=== PATIENT | male | born 1955 | race Caucasian/White ===

== ENCOUNTER → 2022-01-09 11:42 | Outpatient (BNVA) | payer MEDICARE, MEDICAID, SELFPAY | PROVIDERS: PCP Internal Medicine Geriatric Medicine; Visit Provider Physician Assistant | DX: R19.5 Other fecal abnormalities (principal); K52.9 Noninfective gastroenteritis and colitis, unspecified; R63.4 Abnormal weight loss; B20 Human immunodeficiency virus [HIV] disease; Z12.11 Encounter for screening for malignant neoplasm of colon | CPT/HCPCS: 99202 ==

== ENCOUNTER 2022-02-24 11:55 | Outpatient (REF) | payer MEDICARE, MEDICAID, SELFPAY ==
[2022-02-24 12:06] LABS: MANUAL DIFF FLAG NO
[2022-02-24 12:56] LABS: Basophils Percent Auto 0.6 % (0-2); Eosinophils Absolute Auto 0.1 X10*3/uL (0.0-0.4); Hematocrit 44.9 % (42.0-52.0); Hemoglobin 15.3 g/dl (14.0-18.0); Imm Gran Abs Auto 0.01 X10*3/uL (0.00-0.03); Imm Gran Pct Auto 0.2 % (0.0-0.4); Lymphocytes Percent Auto 31.7 % (20-40); Mean Corpuscular HGB Conc 34.1 g/dl (31.0-36.0); Mean Corpuscular Hemoglobin 29.5 pg (27.0-33.0); Mean Corpuscular Volume 86.7 fL (80.0-98.0); Mean Platelet Volume 10.4 fL (9.4-12.4); Monocytes Absolute Auto 0.5 X10*3/uL (0.1-1.2); Monocytes Percent Auto 8.6 % (2-11); Neutrophils Absolute Auto 3.6 x10*3/uL (2.0-8.3); Neutrophils Percent Auto 57.9 % (45-73); Platelet Count 218 X10*3/uL (160-400); Red Blood Count 5.18 X10*6/uL (4.60-5.80); Red Cell Distribution Width 13.4 % (11.0-16.0); White Blood Count 6.2 X10*3/uL (4.8-10.8)
[2022-02-24 13:24] LABS: Alanine Aminotransferase 14 U/L (0-40); Albumin Level 4.4 g/dL (3.5-5.0); Alkaline Phosphatase 93 U/L (39-117); Anion Gap 17 (12-20); Aspartate Amino Transferase 24 U/L (5-37); Bilirubin Total 0.5 mg/dL (0.0-1.0); Blood Urea Nitrogen 25 mg/dL (9-16); Calcium 9.1 mg/dL (8.4-10.2); Carbon Dioxide 21 mmol/L (22-29); Chloride 103 mmol/L (96-108); Estimated Glomerular Filt Rate 47; Glucose Random 90 mg/dL (60-115); Potassium 4.8 mmol/L (3.3-5.1); Sodium 136 mmol/L (135-145); Total Protein 7.4 g/dL (6.5-8.0)
[2022-02-24 13:38] LABS: Thyroid Stimulating Hormone 0.93 uIU/mL (0.32-4.0)
== END 2022-02-24 11:56 | disposition home or self-care (01) ==
LOC: HO.LAB 11:55
PROVIDERS: PCP Internal Medicine Geriatric Medicine; Visit Provider Physician Assistant
DX: R63.4 Abnormal weight loss (principal); R19.5 Other fecal abnormalities; K52.9 Noninfective gastroenteritis and colitis, unspecified
CPT/HCPCS: 36415; 80053; 84443; 85025

== ENCOUNTER 2022-04-25 11:08 | Day surgery (SDC) | payer MEDICARE, MEDICAID, SELFPAY ==
[2022-04-20 11:02] VITALS: BMI 19.5
--- NOTE | 2022-04-24 13:19 | P.CONAN_ITS ---
Documented by User: Kerline England NP 04/24/22 13:19 HPI - Anesthesia Eval Consult details Narrative: 66yo M for Upper Endoscopy and Colonoscopy PMFSH Active Problems Active Problems: All Active Problems (Updated 04/20/22 @ 11:05 by Katelyn Barnard RN) Positive colorectal cancer screening using Cologuard test (Acute) Weight loss (Acute) Past Medical History Medical History HIV (human immunodeficiency virus infection) HTN (hypertension) Low back pain Family History Family History Father HTN (hypertension) Heart disease Mother Alzheimer disease Surgical History Surgical History Hx of colonoscopy Hx of hernia repair Social History Social History (Updated 04/20/22 @ 11:02 by Katelyn Barnard RN) Household Members: Family Housing: House Are you a primary manager urgent care to a significant other at home: Yes (father 96 yr old) Do you presently have visiting nurse or other home services: No Alcohol intake: current Alcohol intake frequency: holidays/special occasions only Alcohol type: wine Patient Tobacco Use Status: Never used Tobacco Current occupational status: retired Meds Allergies Allergy/AdvReac Type Severity Reaction Status Date / Time No Known Allergies Allergy Mild NO KNOWN Verified 04/25/22 11:43 ALLERGIES Home Medications Medication Instructions Recorded Confirmed Last Taken Type amlodipine 10 mg tablet 10 mg PO BEDTIME 01/09/22 04/20/22 Unknown History bictegravir 50 mg-emtricitabine 1 tab PO BEDTIME 01/09/22 04/20/22 Unknown History 200 mg-tenofovir alafenam 25 mg tablet (Biktarvy) lisinopril 20 mg tablet 20 mg PO BEDTIME 01/09/22 04/20/22 Unknown History Exam Exam Date and Time: April 24, 2022 1319 Height,Weight and Vital Signs: Height 5 ft 8 in Weight 58.513 kg Pertinent Lab Results Pertinent Lab Results: Laboratory Tests 02/24/22 02/24/22 12:04 12:04 WBC 6.2 Hgb 15.3 Hct 44.9 Plt Count 218 Sodium 136 Potassium 4.8 Chloride 103 Carbon Dioxide 21 L BUN 25 H Creatinine 1.49 H Assessment and Plan Assessment Anesthesia Assessment: Chart Reviewed Documented by User: Kevin Davis MD 04/25/22 19:51 [facility] Past Medical History Medical History HIV (human immunodeficiency virus infection) HTN (hypertension) Low back pain Family History Family History Father HTN (hypertension) Heart disease Mother Alzheimer disease Family history of problems with anesthesia: No Surgical History Surgical History Hx of colonoscopy Hx of hernia repair History of Problems with Anesthesia: No Social History Social History (Updated 04/20/22 @ 11:02 by Katelyn Barnard RN) Household Members: Family Housing: House Are you a primary manager urgent care to a significant other at home: Yes (father 96 yr old) Do you presently have visiting nurse or other home services: No Alcohol intake: current Alcohol intake frequency: holidays/special occasions only Alcohol type: wine Patient Tobacco Use Status: Never used Tobacco Current occupational status: retired Meds Allergies Allergy/AdvReac Type Severity Reaction Status Date / Time No Known Allergies Allergy Mild NO KNOWN Verified 04/25/22 11:43 ALLERGIES Home Medications Medication Instructions Recorded Confirmed Last Taken Type amlodipine 10 mg tablet 10 mg PO BEDTIME 01/09/22 04/20/22 Unknown History bictegravir 50 mg-emtricitabine 1 tab PO BEDTIME 01/09/22 04/20/22 Unknown History 200 mg-tenofovir alafenam 25 mg tablet (Biktarvy) lisinopril 20 mg tablet 20 mg PO BEDTIME 01/09/22 04/20/22 Unknown History Exam Airway Mallampati Class: III TM Dist: >3cm Neck ROM: Full Loose/Missing/Broken Teeth: Yes (Poor , chiiped multiple) Heart: S1,S2 Lungs: b/l breath sounds Assessment and Plan Assessment Anesthesia Assessment: Anesthesia Plan Discussed Final Anesthetic Review Family History of Problems with Anesthesia: No History of Problems with Anesthesia: No NPO: Yes ASA Class: III Final Preanesthetic Review: Meds/Allgs Chart Reviewed, Consent Obtained/Reviewed and Anes Risks/Benef Reviewed Patient Risk: Intermediate Procedure Risk: Intermediate Anesthetic Plan Anesthetic Plan: MAC: Disposition: Standard PACU
--- NOTE | 2022-04-25 11:31 | MHC.SHP ---
Pre-Procedural Eval Section A Date of Service: 04/25/22 Section B Chief Complaint: Other fecal abnormalities,Abnormal weight loss Relevant Family History (Specify if Yes): No Relevant Social History: None Present Medications: see Short Stay Collaborative assessment Medical History: Significant History (HIV (human immunodeficiency virus infection) HTN (hypertension) Low back pain) History of Previous Operations: Relevant previous surgery/procedure and date(s) (hernia repair, colonoscopy ) Allergies: Allergies Allergy/AdvReac Type Severity Reaction Status Date / Time No Known Allergies Allergy Mild NO KNOWN Verified 04/20/22 11:01 ALLERGIES Review of Systems Sugical H&P ROS: Negative: Constitution, Cardiovascular, Respiratory, Neurological, Psychiatric, Hem-Onc, Allergic/Immunologic, Gastrointestinal, Genitourinary, Musculoskeletal, Integumentary, Endocrine and Eyes/Ears/Nose/Throat Exam Surgical H&P Exam: Normal: HEENT, Normal: Heart, Normal: Lungs, Normal: Extremities, Normal: Abdomen, Normal: Skin and Normal: Neurological Exam Comment: cachexic appearing Plan Diagnosis/Plan: Unchanged I have reviewed the history and physical and performed a pertinent physical examination on my patient. No changes have occurred unless specified.
[2022-04-25 11:43] VITALS: BP 151/86; PULSE 75; RESP 15; TEMP 36.4; O2SAT 100
[2022-04-25] MEDS: Lactated Ringers 1,000 ML 100 ML IVCONT (11:58)
--- NOTE | 2022-04-25 12:40 | W.PM.OPN ---
Operative Note Operative Note Date of Service: 04/25/22 Narrative: Operative Information Procedure Description: EGD, Colonoscopy Indication: weight loss, pos cologuard Anesthesia: MAC FLEXIBLE TRANSORAL UPPER GASTROINTESTINAL ENDOSCOPY AND COLONOSCOPY PROCEDURE NOTE UPPER ENDOSCOPY Consent: Indications for the procedure and potential complications of bleeding, perforation, reaction to medications and missed diagnosis were discussed with the patient and informed consent was obtained. Instrument: Olympus GIF H 190 J mid size upper endoscope Monitoring: Vital signs and clinical assessment, continuous EKG monitoring, Pulse oximetry, Carbon Dioxide monitoring and blood pressure monitoring were done throughout the procedure. Procedure: The patient was placed in the left lateral decubitis position and pre-procedure medications were administered and a bite block was placed. The endoscope was inserted into the mouth and advanced under direct vision to the third part of duodenum. A careful inspection was made as the upper endoscope was withdrawn including a retroflexed examination of the proximal stomach; Findings and interventions are described below. Findings: Larynx:normal Esophagus: GE junction at 40 cm, diaphragm hiatus at 40 cm, bogginess and erythema at GEJ consistent with esophagitis, bx taken as well as from distal esophagus in separate jars Stomach: Patchy erythema. Biopsies were obtained. Grade 2 flap valve on retroflexed examination of the cardia. Duodenum: Mild duodenitis, bx taken Intervention: Biopsies as noted above COLONOSCOPY Instrument: Olympus variable stiffness pediatric scope 190L then switched to EGd scope due to tight sigmoid Colonoscopy Monitoring: Vital signs and clinical assessment, continuous EKG monitoring, Pulse oximetry, Carbon Dioxide monitoring and blood pressure monitoring were done throughout the procedure. Colon withdrawal time was 13 minutes. Procedure: The patient was placed in the left lateral decubitis position and pre-procedure medications were administered. After a digital rectal examination of the ano-rectum, the video colonoscope was inserted into the rectum and advanced through the colon to the cecum/TI. The colonoscope was slowly withdrawn in a retrograde panoramic fashion and the colon mucosa was carefully examined including a retroflexed view of the rectum. Findings and interventions are described below. Procedure Difficulty:hard Findings: Terminal Ileum-normal, bx taken Random colon bx taken Cecum: 10 mm sessile polyp removed with cold snare Ascending Colon: normal Transverse Colon -normal Descending Colon:normal Sigmoid Colon: severe diverticulosis, with tight lumen and hypertrophic mucosa Rectum: Retroflexion with small internal hemorrhoids, grade I Anorectum - normal Colon preparation: [place] Bowel Preparation Scale Right colon; 2 Transverse colon: 2 Left colon; 2 (0 = Unprepared colon segment with mucosa not seen due to solid stool that cannot be cleared. 1 = Portion of mucosa of the colon segment seen, but other areas of the colon segment not well seen due to staining, residual stool and/or opaque liquid. 2 = Minor amount of residual staining, small fragments of stool and/or opaque liquid, but mucosa of colon segment seen well. 3 = Entire mucosa of colon segment seen well with no residual staining, small fragments of stool or opaque liquid) Impression and Post Procedure Diagnosis: Endoscopy Findings: gastritis esophagitis Colonoscopy Findings: polyp internal hemorrhoids diverticular disease Plan: Await Pathology results Repeat Colonoscopy in 5 years if adenomatous polyp, 10 yrs if benign or earlier if clinically indicated High fiber diet leaflet avoid straining at stool, epsom salts and sitz bath, anusol supps or cream If ongoing weight loss and neg bx then will need to widen the work up Above findings were reviewed with the patient and relevant handouts were provided if indicated.
[2022-04-25 13:55] VITALS: BP 132/80; PULSE 76; RESP 16; TEMP 36.4; O2SAT 98
[2022-04-25 14:10] VITALS: BP 150/94; PULSE 73; RESP 16; O2SAT 100
[2022-04-25 14:25] VITALS: BP 164/96; PULSE 58; RESP 16; O2SAT 100
[2022-04-25 14:40] VITALS: BP 163/88; PULSE 60; RESP 18; TEMP 36.6; O2SAT 100
== END 2022-04-25 15:06 | disposition home or self-care (01) ==
PROVIDERS: PCP Internal Medicine Geriatric Medicine; Visit Provider Internal Medicine Gastroenterology
PROC: (CPT 45385; principal; 2022-04-25 12:40)
DX: R19.5 Other fecal abnormalities (principal); R63.4 Abnormal weight loss; Z68.1 Body mass index [BMI] 19.9 or less, adult; D12.0 Benign neoplasm of cecum; K57.30 Diverticulosis of large intestine without perforation or abscess without bleeding; K64.0 First degree hemorrhoids; K20.90 Esophagitis, unspecified without bleeding; K29.80 Duodenitis without bleeding; K29.70 Gastritis, unspecified, without bleeding; I10 Essential (primary) hypertension; B20 Human immunodeficiency virus [HIV] disease; Z79.899 Other long term (current) drug therapy
CPT/HCPCS: 45385; 45380; 43239; 88305; 88312; 88313; 88342

== ENCOUNTER 2023-01-01 16:22 | Outpatient (REF) | payer MEDICARE, MEDICAID, SELFPAY ==
[2023-01-02 01:55] LABS: Anion Gap 9 (12-20); Blood Urea Nitrogen 22 mg/dL (9-16); Calcium 8.8 mg/dL (8.4-10.2); Carbon Dioxide 29 mmol/L (22-29); Chloride 105 mmol/L (96-108); Estimated Glomerular Filt Rate 44; Glucose Random 75 mg/dL (60-115); Potassium 4.1 mmol/L (3.3-5.1); Sodium 139 mmol/L (135-145); Uric Acid 6.7 mg/dL (3.4-7.0)
== END 2023-01-01 16:23 | disposition home or self-care (01) ==
LOC: HO.HHCL 16:22
PROVIDERS: Visit Provider Internal Medicine Geriatric Medicine
DX: M25.562 Pain in left knee (principal)
CPT/HCPCS: 36415; 80048; 84550

== ENCOUNTER 2023-01-02 10:05 | Outpatient (REF) | payer MEDICARE, SELFPAY ==
--- NOTE | ~2023-01-02 | XR_ITS ---
EXAMINATION: XR KNEE, LEFT CLINICAL INFORMATION: Left knee pain. COMPARISON: None available. TECHNIQUE: Four views of the left knee. FINDINGS: No fracture or joint effusion appreciated. Alignment is anatomic. Question mild joint space narrowing involving the patellofemoral compartment laterally. Joint spaces otherwise appear maintained. Calcification of the popliteal artery. XR/XR knee LT 4V IMPRESSION: No acute finding.
== END 2023-01-02 10:06 | disposition home or self-care (01) ==
LOC: HO.XRAY 10:05
PROVIDERS: PCP Internal Medicine Geriatric Medicine; Visit Provider Internal Medicine Geriatric Medicine
DX: M25.562 Pain in left knee (principal)
CPT/HCPCS: 73564

== ENCOUNTER 2023-01-17 13:58 | Outpatient (REF) | payer MEDICARE, SELFPAY ==
[2023-01-17 17:14] LABS: MANUAL DIFF FLAG NO
[2023-01-17 17:19] LABS: Basophils Percent Auto 0.4 % (0-2); Eosinophils Absolute Auto 0.1 X10*3/uL (0.0-0.4); Eosinophils Percent Auto 0.7 % (0-4); Hematocrit 46.9 % (42.0-52.0); Hemoglobin 15.5 g/dl (14.0-18.0); Imm Gran Abs Auto 0.07 X10*3/uL (0.00-0.03); Imm Gran Pct Auto 0.7 % (0.0-0.4); Lymphocytes Absolute Auto 1.6 X10*3/uL (1.2-4.9); Lymphocytes Percent Auto 14.9 % (20-40); Mean Corpuscular Hemoglobin 30.1 pg (27.0-33.0); Mean Corpuscular Volume 91.1 fL (80.0-98.0); Mean Platelet Volume 10.6 fL (9.4-12.4); Monocytes Absolute Auto 1.3 X10*3/uL (0.1-1.2); Neutrophils Absolute Auto 7.4 x10*3/uL (2.0-8.3); Neutrophils Percent Auto 71.3 % (45-73); Platelet Count 192 X10*3/uL (160-400); Red Blood Count 5.15 X10*6/uL (4.60-5.80); Red Cell Distribution Width 13.8 % (11.0-16.0); White Blood Count 10.4 X10*3/uL (4.8-10.8)
[2023-01-17 17:56] LABS: Alanine Aminotransferase 12 U/L (0-40); Albumin Level 3.8 g/dL (3.5-5.0); Alkaline Phosphatase 106 U/L (39-117); Anion Gap 17 (12-20); Aspartate Amino Transferase 15 U/L (5-37); Bilirubin Total 0.5 mg/dL (0.0-1.0); Blood Urea Nitrogen 35 mg/dL (9-16); Calcium 9.3 mg/dL (8.4-10.2); Carbon Dioxide 26 mmol/L (22-29); Chloride 98 mmol/L (96-108); Estimated Glomerular Filt Rate 36; Glucose Random 90 mg/dL (60-115); Potassium 4.5 mmol/L (3.3-5.1); Sodium 136 mmol/L (135-145); Total Protein 6.9 g/dL (6.5-8.0)
[2023-01-19 12:52] LABS: Absolute CD3 Count 1139 cells/uL (840-3060); Absolute CD4 Count 165 cells/uL (490-1740); Absolute CD8 Count 962 cells/uL (180-1170); Absolute Lymphocytes 1497 cells/uL (850-3900); CD4 CD8 Ratio 0.17 (0.86-5.00); Percent CD3 Cells 76 % (57-85); Percent CD4 Cells 11 % (30-61); Percent CD8 Cells 64 % (12-42)
[2023-01-21 09:29] LABS: HIV RNA PCR Qn Copies NOT DETECTED copies/mL (NOT DETECTED); HIV RNA PCR Qn Log Copies NOT DETECTED (NOT DETECTED)
== END 2023-01-17 13:59 | disposition home or self-care (01) ==
LOC: HO.HHCL 13:58
PROVIDERS: Visit Provider Internal Medicine
DX: B20 Human immunodeficiency virus [HIV] disease (principal)
CPT/HCPCS: 36415; 80053; 85025; 86359; 86360; 87536

== ENCOUNTER 2023-02-07 08:01 | Outpatient (AMB) | payer MEDICARE, SELFPAY ==
--- NOTE | 2023-02-07 08:03 | MHC.OFFVIS ---
Intake Vital Signs 02/07/23 08:08 Height 5 ft 7 in Weight 122 lb BMI 19.1 Intake Visit Reasons: COMMERCIAL LITIGATION ASSOCIATE, Left Knee Pain Intake Note: Sammy is a 67 year old male who presents today for a new patient visit with complaints of left knee pain. Denies injury. He has been taking tylenol and using topical diclofenac. His pain is felt on the lateral aspect of the knee , he also explains that he has been having pain in the right achilles. Pain in the left knee is increased with prolonged walking standing and stairs. He was seen with his pcp who suggested possible gout, blood work was done but he was not given results yet. He denies any locking or giving way. He does do quite a bit of cycling and walking for exercise. Allergies No Known Allergies Allergy (Mild, Verified 02/07/23 08:08) NO KNOWN ALLERGIES Medication List - Last Reconciled 02/07/23 by Venkat Padilla MD amlodipine 10 mg PO BEDTIME vrkhnxpzl-fwarjyac-svbkalz ala 50-200-25 mg (Biktarvy) 1 tab PO BEDTIME diclofenac sodium 1% (Arthritis Pain (diclofenac)) 2 grams topical QID lisinopril 20 mg PO BEDTIME PFSH Medical History (Updated 02/07/23 @ 08:29 by Venkat Padilla MD) Low back pain HIV (human immunodeficiency virus infection) HTN (hypertension) Surgical History Hx of hernia repair Hx of colonoscopy Family History Father HTN (hypertension) Heart disease Mother Alzheimer disease Social History (Updated 04/20/22 @ 11:02 by Katelyn Barnard RN) Household Members: Family Housing: House Are you a primary health care facilities inspector to a significant other at home: Yes (father 96 yr old) Do you presently have visiting nurse or other home services: No Alcohol intake: current Alcohol intake frequency: holidays/special occasions only Alcohol type: wine Patient Tobacco Use Status: Never used Tobacco Current occupational status: retired Physical Exam Vital Signs: BMI result Body Mass Index 19.1 Const Other: Well-nourished well-developed very friendly male awake alert and oriented x3 in no acute distress Extrem Other: Bilateral lower extremity examination shows good capillary refill, no skin lesions noted, normal sensation light touch Left knee examination shows a minimal effusion, mild crepitus with range of motion, range of motion from full extension to 120 degrees of flexion, no instability Results Reviewed Results Reviewed: X-rays of the patient's left knee show mild diffuse joint space narrowing, no acute bony abnormalities Assessment & Plan Assessment & Plan (1) Left knee pain: Code(s): M25.562 - Pain in left knee Plan: Mr. Gardner presents with left knee discomfort most likely due to early degenerative joint disease. I had a lengthy discussion with the patient regarding the treatment options. At this point his symptoms are improving with Tylenol and activity modifications. He will follow up with me on an as-needed basis should his symptoms worsen in any way. Feel free to call me at any time should questions regarding his orthopedic management arise. Thank you very much for asking me to see this very friendly gentleman. I spent 22 minutes in reviewing the patient's records and imaging studies, seeing the patient and documenting in the medical record. Coding Level of Care Code New Pt Level 2 (29730) Diagnoses Left knee pain M25.562
[2023-02-07 08:08] VITALS: BMI 19.1
== END 2023-02-07 08:34 | disposition home or self-care (01) ==
PROVIDERS: PCP Internal Medicine Geriatric Medicine; Visit Provider Orthopaedic Surgery
DX: M25.562 Pain in left knee (principal)
CPT/HCPCS: 99202

== ENCOUNTER → 2023-02-07 08:01 | Outpatient (BNVA) | payer MEDICARE, SELFPAY | PROVIDERS: PCP Internal Medicine Geriatric Medicine; Visit Provider Orthopaedic Surgery | DX: M25.562 Pain in left knee (principal) | CPT/HCPCS: 99202 ==

== ENCOUNTER 2023-03-19 13:56 | Outpatient (REF) | payer MEDICARE, SELFPAY ==
[2023-03-19 15:57] LABS: MANUAL DIFF FLAG NO
[2023-03-19 16:08] LABS: Basophils Percent Auto 0.6 % (0-2); Eosinophils Absolute Auto 0.1 X10*3/uL (0.0-0.4); Eosinophils Percent Auto 0.8 % (0-4); Hematocrit 44.6 % (42.0-52.0); Hemoglobin 14.7 g/dl (14.0-18.0); Imm Gran Abs Auto 0.02 X10*3/uL (0.00-0.03); Imm Gran Pct Auto 0.3 % (0.0-0.4); Lymphocytes Absolute Auto 1.6 X10*3/uL (1.2-4.9); Lymphocytes Percent Auto 22.8 % (20-40); Mean Platelet Volume 10.5 fL (9.4-12.4); Monocytes Absolute Auto 0.4 X10*3/uL (0.1-1.2); Monocytes Percent Auto 5.7 % (2-11); Neutrophils Percent Auto 69.8 % (45-73); Platelet Count 220 X10*3/uL (160-400); Red Cell Distribution Width 14.6 % (11.0-16.0); White Blood Count 7.2 X10*3/uL (4.8-10.8)
[2023-03-19 16:21] LABS: Alanine Aminotransferase 13 U/L (0-40); Albumin Level 4.1 g/dL (3.5-5.0); Alkaline Phosphatase 86 U/L (39-117); Anion Gap 12 (12-20); Aspartate Amino Transferase 20 U/L (5-37); Bilirubin Total 0.4 mg/dL (0.0-1.0); Blood Urea Nitrogen 19 mg/dL (9-16); Calcium 9.7 mg/dL (8.4-10.2); Carbon Dioxide 23 mmol/L (22-29); Chloride 108 mmol/L (96-108); Estimated Glomerular Filt Rate 56; Glucose Random 100 mg/dL (60-115); Potassium 4.3 mmol/L (3.3-5.1); Sodium 139 mmol/L (135-145); Total Protein 7.1 g/dL (6.5-8.0)
[2023-03-20 08:44] LABS: Absolute CD3 Count 1292 cells/uL (840-3060); Absolute CD4 Count 218 cells/uL (490-1740); Absolute CD8 Count 1061 cells/uL (180-1170); Absolute Lymphocytes 1605 cells/uL (850-3900); CD4 CD8 Ratio 0.21 (0.86-5.00); Percent CD3 Cells 80 % (57-85); Percent CD4 Cells 14 % (30-61); Percent CD8 Cells 66 % (12-42)
[2023-03-21 16:12] LABS: HIV RNA PCR Qn Copies 80 copies/mL (NOT DETECTED)
== END 2023-03-19 13:57 | disposition home or self-care (01) ==
LOC: HO.HHCL 13:56
PROVIDERS: Visit Provider Internal Medicine
DX: B20 Human immunodeficiency virus [HIV] disease (principal)
CPT/HCPCS: 36415; 80053; 85025; 86359; 86360; 87536

== ENCOUNTER 2023-07-23 10:48 | Outpatient (REF) | payer MEDICARE, SELFPAY ==
[2023-07-23 13:20] LABS: MANUAL DIFF FLAG NO
[2023-07-23 13:43] LABS: Basophils Percent Auto 0.6 % (0-2); Eosinophils Absolute Auto 0.1 X10*3/uL (0.0-0.4); Eosinophils Percent Auto 0.7 % (0-4); Hemoglobin 15.8 g/dl (14.0-18.0); Imm Gran Abs Auto 0.02 X10*3/uL (0.00-0.03); Imm Gran Pct Auto 0.3 % (0.0-0.4); Lymphocytes Absolute Auto 1.6 X10*3/uL (1.2-4.9); Lymphocytes Percent Auto 22.6 % (20-40); Mean Corpuscular HGB Conc 32.9 g/dl (31.0-36.0); Mean Corpuscular Volume 91.3 fL (80.0-98.0); Mean Platelet Volume 10.4 fL (9.4-12.4); Monocytes Absolute Auto 0.6 X10*3/uL (0.1-1.2); Monocytes Percent Auto 8.6 % (2-11); Neutrophils Absolute Auto 4.7 x10*3/uL (2.0-8.3); Neutrophils Percent Auto 67.2 % (45-73); Platelet Count 206 X10*3/uL (160-400); Red Blood Count 5.26 X10*6/uL (4.60-5.80); Red Cell Distribution Width 13.3 % (11.0-16.0)
[2023-07-23 13:58] LABS: Cholesterol 213 mg/dL (<200); HDL Cholesterol 31 mg/dL (>40); LDL Cholesterol Calculated 146 mg/dL (<100); Triglycerides 183 mg/dL (<150)
[2023-07-23 14:00] LABS: Alanine Aminotransferase 9 U/L (0-40); Albumin Level 4.1 g/dL (3.5-5.0); Alkaline Phosphatase 99 U/L (39-117); Anion Gap 9 (12-20); Aspartate Amino Transferase 15 U/L (5-37); Bilirubin Total 0.6 mg/dL (0.0-1.0); Blood Urea Nitrogen 29 mg/dL (9-16); Calcium 9.3 mg/dL (8.4-10.2); Carbon Dioxide 29 mmol/L (22-29); Chloride 106 mmol/L (96-108); Estimated Glomerular Filt Rate 45; Glucose Random 88 mg/dL (60-115); Potassium 4.8 mmol/L (3.3-5.1); Sodium 139 mmol/L (135-145); Total Protein 7.2 g/dL (6.5-8.0)
[2023-07-23 14:24] LABS: Prostate Specific Antigen 4.08 ng/mL (<0.05-4.0)
[2023-07-23 14:41] LABS: Reflex LDLD? No
[2023-07-24 08:08] LABS: ~HepC Num1 0.08 S/CO (0.00-0.79); ~Hepatitis C Antibody Nonreactive (Nonreactive)
[2023-07-24 08:15] LABS: Syphilis Screen Nonreactive (Nonreactive)
[2023-07-24 16:23] LABS: HIV RNA PCR Qn Copies 25 copies/mL (NOT DETECTED)
[2023-07-25 11:08] LABS: Absolute CD3 Count 1127 cells/uL (840-3060); Absolute CD4 Count 155 cells/uL (490-1740); Absolute CD8 Count 958 cells/uL (180-1170); Absolute Lymphocytes 1407 cells/uL (850-3900); CD4 CD8 Ratio 0.16 (0.86-5.00); Percent CD3 Cells 80 % (57-85); Percent CD4 Cells 11 % (30-61); Percent CD8 Cells 68 % (12-42)
[2023-07-26 00:28] LABS: TS Negative Control Passed; TS Panel A 0; TS Panel B 0; TS Positive Control Passed; TSpotTB Negative (Negative)
== END 2023-07-23 10:49 | disposition home or self-care (01) ==
LOC: HO.HHCL 10:48
PROVIDERS: Internal Medicine Geriatric Medicine; Visit Provider Internal Medicine
DX: B20 Human immunodeficiency virus [HIV] disease (principal); I10 Essential (primary) hypertension; N40.0 Benign prostatic hyperplasia without lower urinary tract symptoms; Z12.5 Encounter for screening for malignant neoplasm of prostate
CPT/HCPCS: 36415; 80053; 80061; 84153; 85025; 86359; 86360; 86481; 86780; 86803; 87536

== ENCOUNTER 2024-02-22 13:08 | Outpatient (REF) | payer MEDICARE, SELFPAY ==
[2024-02-22 16:10] LABS: MANUAL DIFF FLAG NO
[2024-02-22 16:19] LABS: Basophils Percent Auto 0.6 % (0-2); Eosinophils Percent Auto 0.3 % (0-4); Hematocrit 48.1 % (42.0-52.0); Hemoglobin 15.8 g/dl (14.0-18.0); Imm Gran Abs Auto 0.02 X10*3/uL (0.00-0.03); Imm Gran Pct Auto 0.3 % (0.0-0.4); Lymphocytes Absolute Auto 1.3 X10*3/uL (1.2-4.9); Lymphocytes Percent Auto 18.9 % (20-40); Mean Corpuscular HGB Conc 32.8 g/dl (31.0-36.0); Mean Corpuscular Hemoglobin 29.4 pg (27.0-33.0); Mean Corpuscular Volume 89.6 fL (80.0-98.0); Mean Platelet Volume 9.9 fL (9.4-12.4); Monocytes Absolute Auto 0.4 X10*3/uL (0.1-1.2); Monocytes Percent Auto 6.4 % (2-11); Neutrophils Absolute Auto 4.9 x10*3/uL (2.0-8.3); Neutrophils Percent Auto 73.5 % (45-73); Platelet Count 291 X10*3/uL (160-400); Red Blood Count 5.37 X10*6/uL (4.60-5.80); Red Cell Distribution Width 13.6 % (11.0-16.0); White Blood Count 6.7 X10*3/uL (4.8-10.8)
[2024-02-22 18:03] LABS: Alanine Aminotransferase 12 U/L (0-40); Albumin Level 4.1 g/dL (3.5-5.0); Alkaline Phosphatase 105 U/L (39-117); Anion Gap 14 (12-20); Aspartate Amino Transferase 21 U/L (5-37); Bilirubin Total 0.4 mg/dL (0.0-1.0); Blood Urea Nitrogen 23 mg/dL (9-16); Calcium 9.2 mg/dL (8.4-10.2); Carbon Dioxide 24 mmol/L (22-29); Chloride 105 mmol/L (96-108); Estimated Glomerular Filt Rate 45; Glucose Random 80 mg/dL (60-115); Potassium 4.5 mmol/L (3.3-5.1); Sodium 138 mmol/L (135-145); Total Protein 7.6 g/dL (6.5-8.0)
[2024-02-25 22:48] LABS: HIV RNA PCR Qn Copies 32 copies/mL (NOT DETECTED); HIV RNA PCR Qn Log Copies 1.51 (NOT DETECTED)
[2024-02-27 16:27] LABS: Absolute CD3 Count 1091 cells/uL (840-3060); Absolute CD4 Count 206 cells/uL (490-1740); Absolute CD8 Count 872 cells/uL (180-1170); Absolute Lymphocytes 1319 cells/uL (850-3900); CD4 CD8 Ratio 0.24 (0.86-5.00); Percent CD3 Cells 83 % (57-85); Percent CD4 Cells 16 % (30-61); Percent CD8 Cells 66 % (12-42)
== END 2024-02-22 13:09 | disposition home or self-care (01) ==
LOC: HO.HHCL 13:08
PROVIDERS: Internal Medicine Geriatric Medicine; Visit Provider Internal Medicine
DX: R97.20 Elevated prostate specific antigen [PSA] (principal); B20 Human immunodeficiency virus [HIV] disease; Z12.5 Encounter for screening for malignant neoplasm of prostate
CPT/HCPCS: 36415; 80053; 84153; 85025; 86359; 86360; 87536

== ENCOUNTER 2024-04-04 13:32 | Outpatient (AMB) | payer MEDICARE, MEDICAID, SELFPAY ==
--- NOTE | 2024-04-04 13:42 | A.OFFVIS_ITS ---
Intake Visit Reasons: RISING psa Intake Note: New Patient is Present for Elevated Rising PSA Urology Med: None Antibiotic Allergy: None Blood Thinner: None PSA: 02/22/24 6.00 Family History: Bladder Cancer? None Prostate Cancer? None Patient denies any urinary issues, no issues with Urine stream Audio Experience Expert Required: No Accompanied by: Self / Same As Patient Allergies No Known Allergies Allergy (Mild, Verified 04/04/24 13:48) NO KNOWN ALLERGIES HPI Comments Details: Sammy is a pleasant male. He is a patient of Dr. Adler. He is seen for the following urologic conditions - rising PSA - elevated PSA Elevated PSA 09/11 4.1, 03/13 6.0 2 point jump over past 6 months Has accelerated rising PSA Reports minimal voiding difficulty with adequate voiding parameters Discussed options including prostate MRI, prostate biopsy, use of finasteride He is interested in trying a prostate MRI and biopsy if he has high-risk lesions FRANCISCO 2+ slight firmness right base A prostate MRI (magnetic resonance imaging) before a biopsy can improve the accuracy of prostate cancer detection and reduce the number of unnecessary biopsies:? - Rodriguez Alonzo,?Ronn Downey,?Jenn Alonzo, et al. Frequency of Biopsy and Tumor Grade Before vs After Introduction of Prostate Magnetic Resonance Imaging.?EVELYN Netw Open.?2022;6(8):[id number]. doi:[email or web address] * Reduces sampling error:?MRI can improve disease localization and sampling, which can reduce sampling error associated with conventional biopsy.? * Increases detection of clinically significant prostate cancer:?MRI can help detect more [place] score 7 or higher cancers.? * Reduces unnecessary biopsies:?MRI can help reduce the number of biopsies performed.? * Improves risk stratification:?MRI can help facilitate more accurate risk stratification.? In the [place], MRI is now used after a PSA test to triage men with suspected localised prostate cancer before a biopsy is conducted, as recommended by the National [place] for Health and Care Excellence (NICE) NG131 and Prostate Cancer Risk Management Programme guidelines for asymptomatic individuals PFSH Medical History Low back pain HIV (human immunodeficiency virus infection) HTN (hypertension) Surgical History Hx of hernia repair Hx of colonoscopy Family History Father HTN (hypertension) Heart disease Mother Alzheimer disease Social History Household Members: Family Housing: House Are you a primary career developer to a significant other at home: Yes (father 96 yr old) Do you presently have visiting nurse or other home services: No Alcohol intake: current Alcohol intake frequency: holidays/special occasions only Alcohol type: wine Patient Tobacco Use Status: Never used Tobacco Current occupational status: retired Review of Systems Const Denies chills and Denies fever(s) Card Reports no additional complaints and Denies syncope Resp Denies cough GI Denies abdominal pain and Denies heartburn Reports as per HPI and Denies change in libido Neuro Denies syncope Psych Denies change in libido Endo Denies change in libido Physical Exam Const General: cooperative, healthy appearing, comfortable and no acute distress Orientation/consciousness: patient oriented x3 HEENT Face and sinus: Yes normal facial exam Mouth: moist mucous membranes Neck Neck: Yes normal visual inspection, Yes full ROM and Yes trachea midline Chest Chest palpation & inspection: normal inspection of the chest Resp Effort & Inspection: normal respiratory effort, able to speak in complete sentences and no respiratory distress GI Inspection: Yes normal to inspection Rectal Exam - Male: Yes normal sphincter tone and Yes prostate normal Male General Exam: Yes normal external exam Penis: normal penis and circumcised Meatus: meatus normal Scrotum: scrotum normal Testes: Testes normal Back/Spine/Pelvis Cervical Spine: normal cervical lordosis Thoracic/Lumbar Spine: thoracic and lumbar spine normal to inspection Skin General skin exam: no rashes or lesions noted Neuro General: patient oriented x3, gait normal, tone normal and moves all extremities Extrem General: Yes normal to inspection and Yes capillary refill normal Assessment & Plan Assessment & Plan (1) Rising PSA level: Code(s): R97.20 - Elevated prostate specific antigen [PSA] Category: Medical (2) Elevated PSA: Code(s): R97.20 - Elevated prostate specific antigen [PSA] Category: Medical Plan Prostate MRI Orders: Orders MR Prostate wo/w con Today R97.20 - Elevated prostate specific antigen [PSA] Patient Instructions: Imaging studies, laboratory and physical exam results were discussed and reviewed in detail. No major barriers to patient understanding were identified. An opportunity to ask questions regarding the treatment plan was provided. All questions were answered. The patient expressed understanding and agreement with the above treatment plan. The patient is aware they should contact our office by phone for worsening of their current condition or the appearance of new urologic symptoms. Compliance is encouraged with any medications and followup testing that is ordered. It is a privilege to participate in the urologic care of your patient. If you have any questions or concerns regarding treatment for the above conditions, or other urologic issues, please do not hesitate to contact me. The office telephone contact is [phone]. This note is constructed using voice recognition software. While every effort has been made to ensure accuracy drum operator errors may have been included. Yours sincerely, Dr Pro Simpson MD, [facility] - Urology Providers of Expert, Compassionate Care for the Genitourinary System Coding Level of Care Code New Pt Level 4 (31536) Diagnoses Rising PSA level R97.20 Elevated PSA R97.20
== END 2024-04-04 14:27 | disposition home or self-care (01) ==
PROVIDERS: PCP Internal Medicine Geriatric Medicine; Visit Provider Urology
DX: R97.20 Elevated prostate specific antigen [PSA] (principal)
CPT/HCPCS: 99204

== ENCOUNTER → 2024-04-04 13:32 | Outpatient (BNVA) | payer MEDICARE, SELFPAY | PROVIDERS: PCP Internal Medicine Geriatric Medicine; Visit Provider Urology | DX: R97.20 Elevated prostate specific antigen [PSA] (principal) | CPT/HCPCS: 99202 ==

== ENCOUNTER 2024-04-10 13:24 | Outpatient (REF) | payer MEDICARE, MEDICAID, SELFPAY | END 2024-04-10 13:25 | disposition home or self-care (01) | LOC: HO.HHCLNP 13:24 | PROVIDERS: Visit Provider Internal Medicine | DX: R19.5 Other fecal abnormalities (principal) | CPT/HCPCS: 88112 ==

== ENCOUNTER → 2024-05-15 08:11 | Outpatient (BNV) | payer MEDICARE, SELFPAY | PROVIDERS: PCP Internal Medicine Geriatric Medicine; Visit Provider Radiology Diagnostic Radiology | DX: R93.813 Abnormal radiologic findings on diagnostic imaging of testicles, bilateral (principal); R97.20 Elevated prostate specific antigen [PSA] | CPT/HCPCS: 72197 ==

== ENCOUNTER 2024-05-15 08:12 | Outpatient (REF) | payer MEDICARE, MEDICAID, SELFPAY ==
[2024-05-15] MEDS: gadobutroL 7.5 ML VIAL IVPUSH (09:32)
== END 2024-05-15 08:13 | disposition home or self-care (01) ==
LOC: HO.MRI 08:12
PROVIDERS: PCP Internal Medicine Geriatric Medicine; Visit Provider Urology
DX: R97.20 Elevated prostate specific antigen [PSA] (principal)
CPT/HCPCS: 72197; A9585

== ENCOUNTER 2024-05-28 15:41 | Outpatient (AMB) | payer MEDICARE, MEDICAID, SELFPAY ==
--- NOTE | 2024-05-28 15:46 | A.OFFVIS_ITS ---
Intake Visit Reasons: MRI Results(Pending) Intake Note: Patient is present for MRI RESULTS Urology Medication:NONE Antibiotic Allergy:NONE Blood Thinner:NONE Print Color Operator Required: No Allergies No Known Allergies Allergy (Mild, Verified 05/28/24 15:47) NO KNOWN ALLERGIES HPI Comments Details: Sammy is a pleasant male. He is a patient of Dr. Adler. He is seen for the following urologic conditions - rising PSA - elevated PSA Discussed MRI results 50 g prostate, 1.4 cm right posterior peripheral zone PI-RADS 4, 1 cm left posterior peripheral zone PI-RADS 4 Would recommend biopsy At this point he would like to continue with finasteride and repeat PSA in 4 months Elevated PSA 09/11 4.1, 03/13 6.0 2 point jump over past 6 months Has accelerated rising PSA FRANCISCO 2+ slight firmness right base PFSH Medical History Low back pain HIV (human immunodeficiency virus infection) HTN (hypertension) Surgical History Hx of hernia repair Hx of colonoscopy Family History Father HTN (hypertension) Heart disease Mother Alzheimer disease Social History Household Members: Family Housing: House Are you a primary patient care director to a significant other at home: Yes (father 96 yr old) Do you presently have visiting nurse or other home services: No Alcohol intake: current Alcohol intake frequency: holidays/special occasions only Alcohol type: wine Patient Tobacco Use Status: Never used Tobacco Current occupational status: retired Review of Systems Const Denies chills and Denies fever(s) Card Reports no additional complaints and Denies syncope Resp Denies cough GI Denies abdominal pain and Denies heartburn Reports as per HPI and Denies change in libido Neuro Denies syncope Psych Denies change in libido Endo Denies change in libido Physical Exam Const General: cooperative, healthy appearing, comfortable and no acute distress Orientation/consciousness: patient oriented x3 HEENT Face and sinus: Yes normal facial exam Mouth: moist mucous membranes Neck Neck: Yes normal visual inspection, Yes full ROM and Yes trachea midline Chest Chest palpation & inspection: normal inspection of the chest Resp Effort & Inspection: normal respiratory effort, able to speak in complete sentences and no respiratory distress GI Inspection: Yes normal to inspection Back/Spine/Pelvis Cervical Spine: normal cervical lordosis Thoracic/Lumbar Spine: thoracic and lumbar spine normal to inspection Skin General skin exam: no rashes or lesions noted Neuro General: patient oriented x3, gait normal, tone normal and moves all extremities Extrem General: Yes normal to inspection and Yes capillary refill normal Assessment & Plan Assessment & Plan (1) Elevated PSA: Code(s): R97.20 - Elevated prostate specific antigen [PSA] Category: Medical Plan Four month follow-up PSA Orders: Orders PSA,Total (Free>4and<10) 4 Months R97.20 - Elevated prostate specific antigen [PSA] Medications: New finasteride 5 mg PO DAILY 90 tabs 1RF 90 days R97.20 - Elevated prostate specific antigen [PSA], N40.1 - Benign prostatic hyperplasia with lower urinary tract symptoms, N13.8 - Other obstructive and reflux uropathy, R33.9 - Retention of urine, unspecified Patient Instructions: This note is constructed using voice recognition software. While every effort has been made to ensure accuracy mold cutting machine operator errors may have been included. Imaging studies, laboratory and physical exam results were discussed and review ed in detail. No major barriers to patient understanding were identified. An opportunity to ask questions regarding the treatment plan was provided. All questions were answered. The patient expressed understanding and agreement with the above treatment plan. The patient is aware they should contact our office by phone for worsening of their current condition or the appearance of new urologic symptoms. Compliance is encouraged with any medications and followup testing that is ordered. It is a privilege to participate in the urologic care of your patient. If you have any questions or concerns regarding treatment for the above conditions, or other urologic issues, please do not hesitate to contact me. The office telephone contact is [phone]. Sincerely, Dr Pro Simpson MD, [facility] - Urology Compassionate Specialist Care for the Genitourinary System Coding Level of Care Code Est Pt Level 4 (55503) Diagnoses Elevated PSA R97.20
== END 2024-05-28 16:15 | disposition home or self-care (01) ==
PROVIDERS: PCP Internal Medicine Geriatric Medicine; Visit Provider Urology
DX: R97.20 Elevated prostate specific antigen [PSA] (principal)
CPT/HCPCS: 99214

== ENCOUNTER → 2024-05-28 15:41 | Outpatient (BNVA) | payer MEDICARE, MEDICAID, SELFPAY | PROVIDERS: PCP Internal Medicine Geriatric Medicine; Visit Provider Urology | DX: R97.20 Elevated prostate specific antigen [PSA] (principal) | CPT/HCPCS: 99212 ==

== ENCOUNTER 2024-09-15 11:43 | Outpatient (REF) | payer MEDICARE, SELFPAY ==
--- OUTSIDE RECORDS SUMMARY | 2024-09-15 14:06 | XMS_ITS | Clinical Summary ---
Author Organization [facility] Address [address] [facility] [address] [place] [address] Phone Care Team Providers Care Dry Box Tender Name Role Phone Name, Jatin CINTRON Primary Care Provider [phone] Allergies No known active allergies Medications amLODIPine (NORVASC) 10 MG tablet Take 1 tablet by mouth 1 (one) time each day Active Bictegravir-Emt ricitab-Tenofov (Biktarvy) 50-200-25 MG tablet Take 1 tablet by mouth 1 (one) time each day Active chlorhexidine (PERIDEX) 0.12 % solution RINSE FOR 30 SECONDS WITH A HALF OUNCE (15ml) TWICE DAILY, SPIT OUT -- DO NOT SWALLOW. 01/19/2021 Active lisinopril 10 MG tablet Take 1 tablet (10 mg total) by mouth 1 (one) time each day 60 tablet 2 06/29/2021 Active Active Problems Problem Noted Date Diagnosed Date Hyperkalemia 03/09/2021 Chronic kidney disease, not otherwise specified 03/09/2021 Stage 3b chronic kidney disease 03/09/2021 Acute nontraumatic kidney injury 03/08/2021 Acute nontraumatic kidney injury 03/08/2021 Hypertensive disorder 03/08/2021 Hypertensive renal disease 03/08/2021 Family History Medical History Relation Comments Cancer Father Hypertension Father Stroke Father Cancer Sibling sister breast Relation Status Comments Father Unknown Mother Unknown Sibling Social History Tobacco Use Types Packs/Day Years Used Date Smoking Tobacco: Never Smokeless Tobacco: Never Alcohol Use Standard Drinks/Week Comments Yes 0 (1 standard drink = 0.6 oz pure alcohol) Alcoholic Drinks/day: Occasional social drink Sex and Gender Information Value Date Recorded Sex Assigned at Not on file Legal Sex Male 5:01 PM EST Gender Identity Not on file Sexual Orientation Not on file Last Filed Vital Signs Vital Sign Reading Time Taken Comments Blood Pressure 140/80 06/29/2021 1:24 PM EST Pulse 75 06/29/2021 1:24 PM EST Temperature - - Respiratory Rate - - Oxygen Saturation 96% 03/30/2021 9:49 AM EST Inhaled Oxygen Concentration - - Weight 58.9 kg (129 lb 12.8 oz) 06/29/2021 1:24 PM EST Height 170.2 cm (5' 7 ) 06/13/2019 12:0 0 PM EST Body Mass Index 20.33 06/13/2019 12:00 PM EST Plan of Treatment Health Maintenance Due Date Last Done Comments Pneumococcal Vaccine: 50+ Ye ars (1 of 2 - PCV) 1974 Colorectal Cancer Screening: Annual FOBT 2004 Colorectal Cancer Screening: Colonoscopy 2004 Colorectal Cancer Screening: Sigmoidoscopy 2004 Influenza Vaccine (Season Ended) 2025 Hepatitis B Vaccine Aged Out No longe r eligible based on patient's age to complete this topic Insurance Medicare Medicaid [place] Medicare Medicaid [place] Care Teams Dry Box Tender Relationship Specialty Start Date End Date Name, MD Jatin [address] [place] [id number] PCP - General 05/31/20
[2024-09-16 15:29] LABS: Free Prostate Spec Ag 1.1 ng/mL; Percent Free Prostate Spec Ag 22 % (calc) (>25); Prostate Specific Ag Total 4.9 ng/mL (< OR = 4.0)
== END 2024-09-15 11:44 | disposition home or self-care (01) ==
LOC: HO.LAB 11:43
PROVIDERS: PCP Internal Medicine Geriatric Medicine; Visit Provider Urology
DX: R97.20 Elevated prostate specific antigen [PSA] (principal); Z12.5 Encounter for screening for malignant neoplasm of prostate
CPT/HCPCS: 36415; 84153; 84154

== ENCOUNTER 2024-10-09 09:35 | Outpatient (AMB) | payer MEDICARE, SELFPAY ==
--- NOTE | 2024-10-09 09:43 | MHC.OFFVIS ---
Intake Visit Reasons: 4m/PSA Intake Note: Patient is present for 4M/PSA Urology Medication:FINASTERIDE Antibiotic Allergy:NONE Blood Thinner:NONE Crude Tester Required: No Allergies No Known Allergies Allergy (Mild, Verified 10/09/24 09:44) NO KNOWN ALLERGIES HPI Comments Details: Sammy is a pleasant male. He is a patient of Dr. Adler. He is seen for the following urologic conditions - rising PSA - elevated PSA PSA with decline Continue to follow in six-month Elevated PSA 09/11 4.1, 03/13 6.0, 09/12 4.9 22% 2 point jump over past 6 months Has accelerated rising PSA FRANCISCO 2+ slight firmness right base Imaging - 05/13 - 50 g prostate, 1.4 cm right posterior peripheral zone PI-RADS 4, 1 cm left posterior peripheral zone PI-RADS 4 - prior recommendation biopsy Background [facility] Medical History Low back pain HIV (human immunodeficiency virus infection) HTN (hypertension) Surgical History Hx of hernia repair Hx of colonoscopy Family History Father HTN (hypertension) Heart disease Mother Alzheimer disease Social History Household Members: Family Housing: House Are you a primary day care aide to a significant other at home: Yes (father 96 yr old) Do you presently have visiting nurse or other home services: No Alcohol intake: current Alcohol intake frequency: holidays/special occasions only Alcohol type: wine Patient Tobacco Use Status: Never used Tobacco Current occupational status: retired Review of Systems Const Denies chills and Denies fever(s) Card Reports no additional complaints and Denies syncope Resp Denies cough GI Denies abdominal pain and Denies heartburn Reports as per HPI and Denies change in libido Neuro Denies syncope Psych Denies change in libido Endo Denies change in libido Physical Exam Const General: cooperative, healthy appearing, comfortable and no acute distress Orientation/consciousness: patient oriented x3 HEENT Face and sinus: Yes normal facial exam Mouth: moist mucous membranes Neck Neck: Yes normal visual inspection, Yes full ROM and Yes trachea midline Chest Chest palpation & inspection: normal inspection of the chest Resp Effort & Inspection: normal respiratory effort, able to speak in complete sentences and no respiratory distress GI Inspection: Yes normal to inspection Back/Spine/Pelvis Cervical Spine: normal cervical lordosis Thoracic/Lumbar Spine: thoracic and lumbar spine normal to inspection Skin General skin exam: no rashes or lesions noted Neuro General: patient oriented x3, gait normal, tone normal and moves all extremities Extrem General: Yes normal to inspection and Yes capillary refill normal Assessment & Plan Assessment & Plan (1) Elevated PSA: Code(s): R97.20 - Elevated prostate specific antigen [PSA] Category: Medical Plan Continue finasteride Six-month follow-up PSA Patient Instructions: This note is constructed using voice recognition software. While every effort has been made to ensure accuracy political science research assistant errors may have been included. Imaging studies, laboratory and physical exam results were discussed and reviewed in detail. No major barriers to patient understanding were identified. An opportunity to ask questions regarding the treatment plan was provided. All questions were answered. The patient expressed understanding and agreement with the above treatment plan. The patient is aware they should contact our office by phone for worsening of their current condition or the appearance of new urologic symptoms. Compliance is encouraged with any medications and followup testing that is ordered. It is a privilege to participate in the urologic care of your patient. If you have any questions or concerns regarding treatment for the above conditions, or other urologic issues, please do not hesitate to contact me. The office telephone contact is [phone]. Sincerely, Dr Pro Simpson MD, [facility] - Urology Compassionate Specialist Care for the Genitourinary System Coding Level of Care Code Est Pt Level 3 (26186) Complex EM visit Add On G2211 Diagnoses Elevated PSA R97.20
--- OUTSIDE RECORDS SUMMARY | 2024-10-09 09:52 | XMS_ITS | Clinical Summary ---
Author Organization [facility] Address [address] [facility] [address] [place] [address] Phone Care Team Providers Care Optical Coating Technician Name Role Phone Name, Jatin CINTRON Primary Care Provider [phone] Allergies No known active allergies Medications amLODIPine [...] Medicaid [place] Medicare Medicaid [place] Care Teams Optical Coating Technician Relationship Specialty Start Date End Date Name, MD Jatin [address] [place] [id number] PCP - General 05/31/20
== END 2024-10-09 10:05 | disposition home or self-care (01) ==
LOC: HO.HUSH 09:35
PROVIDERS: PCP Internal Medicine Geriatric Medicine; Visit Provider Urology
DX: R97.20 Elevated prostate specific antigen [PSA] (principal)
CPT/HCPCS: 99213; G2211

== ENCOUNTER 2024-10-09 09:35 | Outpatient (REF) | payer MEDICARE, SELFPAY ==
[2024-10-09 10:51] LABS: MANUAL DIFF FLAG NO
--- OUTSIDE RECORDS SUMMARY | 2024-10-09 10:57 | XMS_ITS | Clinical Summary ---
Author Organization [facility] Address [address] [facility] [address] [place] [address] Phone Care Team Providers Care Regional Program Manager Name Role Phone Name, Jatin CINTRON Primary Care Provider [phone] Allergies No known active allergies Medications amLODIPine [...] Medicaid [place] Medicare Medicaid [place] Care Teams Regional Program Manager Relationship Specialty Start Date End Date Name, MD Jatin [address] [place] [id number] PCP - General 05/31/20
[2024-10-09 11:22] LABS: Basophils Percent Auto 0.4 % (0-2); Eosinophils Percent Auto 0.6 % (0-4); Hematocrit 48.9 % (42.0-52.0); Hemoglobin 16.2 g/dl (14.0-18.0); Imm Gran Abs Auto 0.03 X10*3/uL (0.00-0.03); Imm Gran Pct Auto 0.6 % (0.0-0.4); Lymphocytes Absolute Auto 1.4 X10*3/uL (1.2-4.9); Lymphocytes Percent Auto 27.3 % (20-40); Mean Corpuscular HGB Conc 33.1 g/dl (31.0-36.0); Mean Corpuscular Hemoglobin 29.1 pg (27.0-33.0); Mean Corpuscular Volume 87.9 fL (80.0-98.0); Mean Platelet Volume 10.1 fL (9.4-12.4); Monocytes Absolute Auto 0.6 X10*3/uL (0.1-1.2); Monocytes Percent Auto 10.4 % (2-11); Neutrophils Absolute Auto 3.2 x10*3/uL (2.0-8.3); Neutrophils Percent Auto 60.7 % (45-73); Platelet Count 185 X10*3/uL (160-400); Red Blood Count 5.56 X10*6/uL (4.60-5.80); Red Cell Distribution Width 13.5 % (11.0-16.0); White Blood Count 5.3 X10*3/uL (4.8-10.8)
[2024-10-09 12:20] LABS: Syphilis Screen Nonreactive (Nonreactive)
[2024-10-09 12:25] LABS: Alanine Aminotransferase 7 U/L (0-40); Albumin Level 4.3 g/dL (3.5-5.0); Alkaline Phosphatase 97 U/L (39-117); Anion Gap 10 (12-20); Aspartate Amino Transferase 21 U/L (5-37); Bilirubin Total 0.7 mg/dL (0.0-1.0); Blood Urea Nitrogen 20 mg/dL (9-16); Calcium 9.3 mg/dL (8.4-10.2); Carbon Dioxide 27 mmol/L (22-29); Chloride 106 mmol/L (96-108); Cholesterol 176 mg/dL (<200); Estimated Glomerular Filt Rate 54; Glucose Random 96 mg/dL (60-115); HDL Cholesterol 25 mg/dL (>40); LDL Cholesterol Calculated 130 mg/dL (<100); Potassium 4.2 mmol/L (3.3-5.1); Sodium 139 mmol/L (135-145); Total Protein 7.2 g/dL (6.5-8.0); Triglycerides 108 mg/dL (<150)
[2024-10-09 13:33] LABS: Reflex LDLD? No
[2024-10-10 03:57] LABS: ~HepC Num1 0.12 S/CO (0.00-0.79); ~Hepatitis C Antibody Nonreactive (Nonreactive)
[2024-10-11 14:13] LABS: HIV RNA PCR Qn Copies 290000 copies/mL (NOT DETECTED); HIV RNA PCR Qn Log Copies 5.46 (NOT DETECTED)
[2024-10-11 21:13] LABS: TS Negative Control Passed; TS Panel A 0; TS Panel B 0; TS Positive Control Passed; TSpotTB Negative (Negative)
[2024-10-15 12:53] LABS: Absolute CD3 Count 1387 cells/uL (840-3060); Absolute CD4 Count 154 cells/uL (490-1740); Absolute CD8 Count 1228 cells/uL (180-1170); Absolute Lymphocytes 1645 cells/uL (850-3900); CD4 CD8 Ratio 0.13 (0.86-5.00); Percent CD3 Cells 84 % (57-85); Percent CD4 Cells 9 % (30-61); Percent CD8 Cells 75 % (12-42)
== END 2024-10-09 09:36 | disposition home or self-care (01) ==
LOC: HO.LAB 09:35
PROVIDERS: PCP Internal Medicine Geriatric Medicine; Visit Provider Internal Medicine
DX: Z21 Asymptomatic human immunodeficiency virus [HIV] infection status (principal); R97.20 Elevated prostate specific antigen [PSA]; Z01.84 Encounter for antibody response examination
CPT/HCPCS: 36415; 80053; 80061; 85025; 86359; 86360; 86481; 86735; 86762; 86765; 86780; 86803; 87536; 99212

== ENCOUNTER 2024-12-03 11:28 | Outpatient (REF) | payer MEDICARE, SELFPAY ==
[2024-12-03 11:44] LABS: MANUAL DIFF FLAG NO
[2024-12-03 11:58] LABS: Hematocrit 44.0 % (42.0-52.0); Hemoglobin 14.6 g/dl (14.0-18.0); Imm Gran Abs Auto 0.03 X10*3/uL (0.00-0.03); Imm Gran Pct Auto 0.4 % (0.0-0.4); Lymphocytes Absolute Auto 1.5 X10*3/uL (1.2-4.9); Mean Corpuscular HGB Conc 33.2 g/dl (31.0-36.0); Mean Corpuscular Hemoglobin 28.7 pg (27.0-33.0); Mean Corpuscular Volume 86.6 fL (80.0-98.0); NRBC Abs Auto 0.000 X10*3/uL (0.0-0.012); NRBC Pct Auto 0.0 /100WBC (0.0-0.2); Platelet Count 239 X10*3/uL (160-400); Red Blood Count 5.08 X10*6/uL (4.60-5.80); White Blood Count 7.6 X10*3/uL (4.8-10.8)
[2024-12-03 12:20] LABS: Alanine Aminotransferase 12 U/L (0-40); Albumin Level 4.2 g/dL (3.5-5.0); Alkaline Phosphatase 96 U/L (39-117); Anion Gap 11 (12-20); Aspartate Amino Transferase 21 U/L (5-37); Blood Urea Nitrogen 23 mg/dL (9-16); Calcium 9.3 mg/dL (8.4-10.2); Carbon Dioxide 29 mmol/L (22-29); Chloride 104 mmol/L (96-108); Estimated Glomerular Filt Rate 52; Potassium 4.6 mmol/L (3.3-5.1); Sodium 139 mmol/L (135-145); Total Protein 7.0 g/dL (6.5-8.0)
[2024-12-04 14:48] LABS: HIV RNA PCR Qn Copies 102 copies/mL (NOT DETECTED); HIV RNA PCR Qn Log Copies 2.01 (NOT DETECTED)
[2024-12-06 19:33] LABS: Absolute CD3 Count 1401 cells/uL (840-3060); Absolute CD8 Count 1184 cells/uL (180-1170); Percent CD3 Cells 82 % (57-85); Percent CD8 Cells 70 % (12-42)
== END 2024-12-03 11:29 | disposition home or self-care (01) ==
LOC: HO.LAB 11:28
PROVIDERS: PCP Internal Medicine Geriatric Medicine; Visit Provider Internal Medicine
DX: Z21 Asymptomatic human immunodeficiency virus [HIV] infection status (principal)
CPT/HCPCS: 36415; 80053; 85025; 86359; 86360; 87536

== ENCOUNTER 2025-01-28 10:58 | Outpatient (REF) | payer MEDICARE, MEDICAID, SELFPAY ==
--- OUTSIDE RECORDS SUMMARY | 2025-01-28 14:00 | XMS_ITS | Clinical Summary ---
Author Organization [facility] Address [address] [facility] [address] [place] [address] Phone Care Team Providers Care Envelope Machine Operator Name Role Phone Name, Jatin CINTRON Primary Care Provider [phone] Allergies No known active allergies Medications amLODIPine [...] Colorectal Cancer Screening: Sigmoidoscopy 2004 Influenza Vaccine (#1) 2025 Hepatitis B Vaccine Aged Out No longe r eligible based on patient's age to complete this topic Insurance Medicare Medicaid [place] Medicare [place] Care Teams Envelope Machine Operator Relationship Specialty Start Date End Date Name, MD Jatin [address] [place] [id number] PCP - General 05/31/20
[2025-01-29 16:39] LABS: HIV RNA PCR Qn Copies 34 copies/mL (NOT DETECTED); HIV RNA PCR Qn Log Copies 1.53 (NOT DETECTED)
[2025-02-03 18:38] LABS: Absolute CD3 Count 1540 cells/uL (840-3060); Absolute CD8 Count 1300 cells/uL (180-1170); Percent CD3 Cells 86 % (57-85); Percent CD8 Cells 73 % (12-42)
== END 2025-01-28 10:59 | disposition home or self-care (01) ==
LOC: HO.LAB 10:58
PROVIDERS: PCP Internal Medicine Geriatric Medicine; Visit Provider Internal Medicine
DX: Z21 Asymptomatic human immunodeficiency virus [HIV] infection status (principal)
CPT/HCPCS: 36415; 86359; 86360; 87536

== ENCOUNTER 2025-04-07 11:54 | Outpatient (REF) | payer MEDICARE, MEDICAID, SELFPAY ==
[2025-04-07 13:07] LABS: Prostate Specific Antigen 3.87 ng/mL (<0.05-4.0)
== END 2025-04-07 11:55 | disposition home or self-care (01) ==
LOC: HO.LAB 11:54
PROVIDERS: PCP Internal Medicine Geriatric Medicine; Visit Provider Urology
DX: R97.20 Elevated prostate specific antigen [PSA] (principal); Z12.5 Encounter for screening for malignant neoplasm of prostate
CPT/HCPCS: 36415; 84153

== ENCOUNTER 2025-04-10 09:08 | Outpatient (AMB) | payer MEDICARE, MEDICAID, SELFPAY ==
--- NOTE | 2025-04-10 09:08 | A.OFFVIS_ITS ---
Intake Visit Reasons: 6M PSA(set) Intake Note: Patient Is Present for PSA Urology Med: Finasteride Antibiotic Allergy: None Blood Thinner: None PSA 3.87 04/07/2025 Accompanied by: Self / Same As Patient Allergies No Known Allergies Allergy (Mild, Verified 04/10/25 09:09) NO KNOWN ALLERGIES HPI Comments Details: Sammy is a pleasant male. He is a patient of Dr. Adler. He is seen for the following urologic conditions - rising PSA - elevated PSA - suspicious nodule on MRI Telemedicine Evaluation 15 min Consultation Doximity Ritesh Video PSA with decline Continue to follow in six-month Elevated PSA 09/11 4.1, 03/13 6.0, 09/12 4.9 22%, 04/14 3.9 2 point jump over past 6 months Has accelerated rising PSA FRANCISCO 2+ slight firmness right base Imaging - 05/13 - 50 g prostate, 1.4 cm right posterior peripheral zone PI-RADS 4, 1 cm left posterior peripheral zone PI-RADS 4 - prior recommendation biopsy Background HIV PFSH Medical History Low back pain HIV (human immunodeficiency virus infection) HTN (hypertension) Surgical History Hx of hernia repair Hx of colonoscopy Family History Father HTN (hypertension) Heart disease Mother Alzheimer disease Social History Household Members: Family Housing: House Are you a primary rn wound care to a significant other at home: Yes (father 96 yr old) Do you presently have visiting nurse or other home services: No Alcohol intake: current Alcohol intake frequency: holidays/special occasions only Alcohol type: wine Patient Tobacco Use Status: Never used Tobacco Current occupational status: retired Telehealth Telehealth Telehealth Platform: [employer] Location of provider rendering services: practice address Location of patient: address on file Patient Identification confirmed using: Name, : Yes Patient verbally consented to treatment: Yes Patient verbally consented to billing insurance company: Yes Patient informed of any privacy concerns related to visit: Yes Minutes spent on Phone/Video with Pt.: 15 Assessment & Plan Assessment & Plan (1) Prostate nodule: Code(s): N40.2 - Nodular prostate without lower urinary tract symptoms Category: Medical (2) Elevated PSA: Code(s): R97.20 - Elevated prostate specific antigen [PSA] Category: Medical Plan Check PSA six-month Orders: Orders Prostate Specific Antigen 04/07/25 R97.20 - Elevated prostate specific antigen [PSA] PSA,Total (Free>4and<10) 6 Months N40.2 - Nodular prostate without lower ur inary tract symptoms Medications: Refilled finasteride 5 mg PO DAILY 90 tabs 1RF 90 days N13.8 - Other obstructive and reflux uropathy, N40.1 - Benign prostatic hyperplasia with lower urinary tract symptoms, R33.9 - Retention of urine, unspecified, R97.20 - Elevated prostate specific antigen [PSA] Patient Instructions: This note is constructed using voice recognition software. While every effort has been made to ensure accuracy reception interviewer errors may have been included. Imaging studies, laboratory and physical exam results were discussed and reviewed in detail. No major barriers to patient understanding were identified. An opportunity to ask questions regarding the treatment plan was provided. All questions were answered. The patient expressed understanding and agreement with the above treatment plan. The patient is aware they should contact our office by phone for worsening of their current condition or the appearance of new urologic symptoms. Compliance is encouraged with any medications and followup testing that is ordered. It is a privilege to participate in the urologic care of your patient. If you have any questions or concerns regarding treatment for the above conditions, or other urologic issues, please do not hesitate to contact me. The office telephone contact is [phone]. Sincerely, Dr Pro Simpson MD, [facility] - Urology Compassionate Specialist Care for the Genitourinary System Coding Level of Care Code Tele Est Pt Level 3 (76374) Inspire Program cplx 4 or more Diagnoses Prostate nodule N40.2 Elevated PSA R97.20
--- OUTSIDE RECORDS SUMMARY | 2025-04-10 09:30 | XMS_ITS | Clinical Summary ---
Author Organization [facility] Address [address] [facility] [address] [place] [address] Phone Care Team Providers Care Natural Sciences Manager Name Role Phone Name, Jatin CINTRON Primary Care Provider [phone] Allergies No known active allergies Medications amLODIPine [...] Medicaid [place] Medicare Medicaid [place] Care Teams Natural Sciences Manager Relationship Specialty Start Date End Date Name, MD Jatin [address] [place] [id number] PCP - General 05/31/20
== END 2025-04-10 11:02 | disposition home or self-care (01) ==
LOC: HO.HUSH 09:08
PROVIDERS: PCP Internal Medicine Geriatric Medicine; Visit Provider Urology
DX: N40.2 Nodular prostate without lower urinary tract symptoms (principal); R97.20 Elevated prostate specific antigen [PSA]
CPT/HCPCS: 99213; G2211